=== PATIENT | female | born 1980 | race Caucasian/White ===

== ENCOUNTER 2020-09-11 13:16 | Outpatient (RCR) | payer OTHER, SELFPAY | END 2020-11-24 23:59 | LOC: IMMUN 13:16 | PROVIDERS: PCP Nurse Practitioner Family; Visit Provider Family Medicine | DX: Z23 Encounter for immunization (principal) | CPT/HCPCS: 0001A; 0002A; 91300 ==

== ENCOUNTER 2024-01-10 12:00 | Outpatient (RCR) | payer OTHER, SELFPAY ==
--- NOTE | 2023-10-09 15:57 | HP.OTEVAL_ITS ---
Patient's Visit Information Visit Information Visit Information: SUZANNE JEAN is a 43 year old F, referred to Occupational Therapy by LIDIA Elise, with a diagnosis of strain of left wrist and elbow. Date of Evaluation: 10/09/23 Occupational Therapist: CHERYL Dobbs/Brittany, CHT Subjective Subjective: This 43 year old female was seen for OT eval with dx of left wrist strain of muscle /tendon / left hand. Pt states she has had issues for last 6 months starting in the hand and then went to elbow at end of August. (painful to use and could not sleep) pt states she went to nurse and she sent [facility] to [facility]. Pt states they put her own prednisone last visit. ( ). pt sates she feels the medication has helped a lot. States still achy but nothing compared to what it was. Pt states she is right handed. Pt works at [employer] pt states she has worked there for about 8.5 years. pt states she is currently on light duty. with a 5# restriction with no gripping of left hand with work. pt arrives with compression elbow sleeve- and the work nurse did give her a wrist brace about two -three weeks ago. (therapist did look at brace this was more of compression glove/gauntlet ) not a restrictive wrist brace. pts pain is limiting her sleep- daily tasks and work tasks. Pt would like to be pain free and return back to her PLOF. ADLs Comments: pt states she is ok with personal bathing and dressing tasks pt states driving is fine family is assisting with home mtg. pt is right handed. Pain left elbow/wrist: Current Pain Intensity: 4 Pain Intensity Range: 4 and 6 ROM Elbow: right 0/140 left 0/140 Forearm: sup/pron WNL bilaterally Wrist: right 60/55 left 60 with discomfort /55 ROM Comments: right UD 30* RF 15* left UD 30* with some discomfort left RD 10* Strength Licensed Nursing Assistant: right 45# left 20# pain 3/10 with release Lateral Pinch: right 14# left 10# Tripod Pinch: right 18# left 10# Strength Comments: right with elbow straight 45# left 24# pain in elbow 4/10 Sensation Sensation Comments: tingling in her thumb- before medication left hand tingling/numb Special Tests Lat Epiconylitis - as named: left painful with palpation Quick DASH-Disab of Arm,Shoulder& Hand Quick DASH Score: 55.3550 Tennis Elbow Tennis Elbow Score: 43 Goals Goal:: pt will demo a increase in left svp digital sales food & cooking strength to 45# or greater to increase pts ind. with ADLs and IADLs by d.c Goal:: pt will report no pain greater than 3/10 with use of left UE by d/c to return pt to PLOF Goal:: Pt will demo understanding of joint protection and ergonomics when performing BADLs and IADLs by d/c Pt will demo understanding of work/lifting and carry ergonomics to decrease stress on tendons to increase pts independent with ADLs, IADLS and work tasks by d/c. Pt will demo understanding of adaptive Equipment use to decrease stress on joints to allow pt to perform BADSL and IADLS at DANTE level. Goal:: Pt will demo understanding of using supportive bracing 80% of workday/ADLS to decrease stress on tendon origin to allow healing and decrease pain by end of 2nd session. Goal:: pt will demo a reduction in dash score point by 10 indication of increase ind. with daily and work tasks by d.c Rehabilitation General Assessment: pt demo with pain and limited strength and use of left UE for home mtg and work tasks. pt would benefit from skilled OT services 3x week for 4-6 weeks. to return pt to her PLOF with ADLs and work tasks. Therapist ed. pt on use of her wrist and elbow brace at night to prevent prolonged positioning of elbow and wrist in flexed position. Therapist advised to get left wrist cock- up brace to decrease ROM of wrist flex/ext during the day and at night.Therapy will continue to work with pt increase pts IND with return to work tasks as well as ergo, joint protection freedom, and PRE as ml. pt demo understanding - pt agree to POC. Rehabilitation Potential: Good Anticipated Interventions Anticipated Interventions: A/AAROM/PROM, Strengthening, Triggerpoint Release, Modalities, Orthoses, Joint Protection/Energy Conservation, Ergonomic Education, Education re assistive Equipment, Education re Diagnosis and Home Program Visit Plan Frequency: 3x /Week Duration: 6 Weeks TEXT: Thank you for the opportunity to evaluate your patient. For Medicare and Medicare HMO plans, please review the plan of care and approve it. It will need to be FAXED BACK to us at [phone] for Medicare purposes. Please let me know if there are questions or concerns regarding this plan of care. Physician Signature: Date:
--- NOTE | 2023-11-22 11:29 | OTREVAL_ITS ---
Re-Evaluation Intro: LIDIA Elise, It has been my pleasure to treat SUZANNE JEAN over the last 18 visits for strain of left wrist and elbow. Please see the progress note below for an update on the occupational therapy plan of care! 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 Acosta. Goals Goals Patient Goals: Decrease Pain, Use Hand/Wrist/Arm Normally Again and Be More Independent in ADLS Goal:: pt will demo a increase in left residential gas heat technician strength to 45# or greater to increase pts ind. with ADLs and IADLs by d.c 11/20/23-- 45# Goal:: pt will report no pain greater than 3/10 with use of left UE by d/c to return pt to PLOF ---11/22/23 pain 4/10 Goal:: Pt will demo understanding of joint protection and ergonomics when performing BADLs and IADLs by d/c ongoing Pt will demo understanding of work/lifting and carry ergonomics to decrease stress on tendons to increase pts independent with ADLs, IADLS and work tasks by d/c. Pt will demo understanding of adaptive Equipment use to decrease stress on joints to allow pt to perform BADSL and IADLS at DANTE level. Goal:: Pt will demo understanding of using supportive bracing 80% of workday/ADLS to decrease stress on tendon origin to allow healing and decrease pain by end of 2nd session. goal met Goal:: pt will demo a reduction in dash score point by 10 indication of increase ind. with daily and work tasks by d.c reduction by 3 points Anticipated Interventions Anticipated Interventions Anticipated Interventions: A/AAROM/PROM, Strengthening, Triggerpoint Release, Modalities, Orthoses, Joint Protection/Energy Conservation, Ergonomic Education, Education re assistive Equipment, Education re Diagnosis and Home Program Re-Evaluation Ending Re-evaluation ending: Please do not hesitate to contact me at [phone] by phone or if you have questions or concerns regarding this new plan of care! Sincerely, Sabra Dunn
--- NOTE | 2024-01-11 08:09 | HP.OTREVAL ---
Re-Evaluation Intro: LIDIA Elise, It has been my pleasure to treat SUZANNE JEAN over the last 16 visits for strain of left wrist and elbow. Please see the progress note below for an update on the occupational therapy plan of care! Subjective Subjective: Pt is having cortisone- last scheduled appt. Objective Objective/Function: R Outside Energy Sales Representatives- 70# same with elbow extended and flexed. L Outside Energy Sales Representatives flexed- 68# extended 65# -small amount of pain in L arm 2/10 after resistive forensic social worker strength test extended - only was present for several seconds. Tripod Grasp: R:11# , L: 10# Lateral Grasp: R:12# , L:10# pt demo with increase of strength and a sig. decrease in pts strength with forensic social worker strength testing with elbow extended indication of pts improvement. pt is compliant with use of braces and protective freedom. with work and home tasks. pt is performing supervised UB strengthening with gym and free wts. pt is looking forward to her cortisone shot to see if it will take residual pain away. pt returns to . will advise for further POC. Plan Plan Plan: 3x week for 4-6 weeks c-9 approval until 01/12/24 LAST SCHEUDLED- will get cortisone shot 01/11/24 Goals Goals Patient Goals: Decrease Pain, Use Hand/Wrist/Arm Normally Again and Be More Independent in ADLS Goal:: pt will demo a increase in left forensic social worker strength to 45# or greater to increase pts ind. with ADLs and IADLs by d.c 11/20/23-- 45# Goal:: pt will report no pain greater than 3/10 with use of left UE by d/c to return pt to PLOF ---11/22/23 pain 4/10 Goal:: Pt will demo understanding of joint protection and ergonomics when performing BADLs and IADLs by d/c ongoing Pt will demo understanding of work/lifting and carry ergonomics to decrease stress on tendons to increase pts independent with ADLs, IADLS and work tasks by d/c. Pt will demo understanding of adaptive Equipment use to decrease stress on joints to allow pt to perform BADSL and IADLS at DANTE level. Goal:: Pt will demo understanding of using supportive bracing 80% of workday/ADLS to decrease stress on tendon origin to allow healing and decrease pain by end of 2nd session. goal met Goal:: pt will demo a reduction in dash score point by 10 indication of increase ind. with daily and work tasks by d.c reduction by 3 points Anticipated Interventions Anticipated Interventions Anticipated Interventions: A/AAROM/PROM, Strengthening, Triggerpoint Release, Modalities, Orthoses, Joint Protection/Energy Conservation, Ergonomic Education, Education re assistive Equipment, Education re Diagnosis and Home Program Re-Evaluation Ending Re-evaluation ending: Please do not hesitate to contact me at [phone] by phone or if you have questions or concerns regarding this new plan of care! Sincerely, Linda Babin, OTR/L, CHT
--- NOTE | 2024-02-28 10:57 | HP.OTDCNRP_ITS ---
Patient Information Patient Information: SUZANNE JEAN was seen in my office for initial evaluation on 10/09/23. The following Plan of Care was established for this patient: POC Established Initial Frequency: 3x /Week Initial Duration: 6 Weeks Plan: 3x week for 4-6 weeks c-9 approval until 01/12/24 LAST SCHEUDLED- will get cortisone shot 01/11/24 Anticipated Interventions Anticipated Interventions: A/AAROM/PROM, Strengthening, Triggerpoint Release, Modalities, Orthoses, Joint Protection/Energy Conservation, Ergonomic Education, Education re assistive Equipment, Education re Diagnosis and Home Program Last Seen Last Seen: This patient was last seen in our office 01/10/24. Pertinent comments regarding their Occupational therapy will appear below: Pt was seen for 16 OT sessions with lateral epicondylitis. R Turpentine Farmer- 70# same with elbow extended and flexed. L Turpentine Farmer flexed- 68# extended 65# -small amount of pain in L arm 2/10 after resistive lab associate strength test extended - only was present for several seconds. This is improvement from initial evaluation. Tripod Grasp: R:11# , L: 10# Lateral Grasp: R:12# , L:10# pt demo with increase of strength and a sig. decrease in pts strength with lab associate strength testing with elbow extended indication of pts improvement. pt is compliant with use of braces and protective freedom. with work and home tasks. pt is performing supervised UB strengthening with gym and free wts. pt is looking forward to her cortisone shot to see if it will take residual pain away. pt returns to Dr. Richards for possible injection. No further orders have been received at this time. Pt is D/C due to time lapse in services. At this point I will be discontinuing this patient from occupational therapy. I would be happy to see this patient again in the future if found appropriate by the physician. Thank you! Linda Babin, OTR/L, CHT
== END 2024-01-10 19:00 | disposition home or self-care (01) ==
LOC: OT 12:00
PROVIDERS: PCP Nurse Practitioner Family; Referring Provider Physician Assistant Surgical; Visit Provider Physician Assistant Surgical
DX: S66.912D Strain of unspecified muscle, fascia and tendon at wrist and hand level, left hand, subsequent encounter (principal)
CPT/HCPCS: 97035; 97110; 97140; 97166; 97530; 97760

== ENCOUNTER → 2024-02-07 | Outpatient (CLI) | payer OTHER, SELFPAY ==
--- NOTE | 2024-02-07 14:30 | NEURO ---
NCS and/or EMG Patient Report Ordering Doctor: Claudy Roberts DATE OF SERVICE: 02/07/24 Bailee presents for electrodiagnostic testing of the left upper limb. She reports numbness tingling and aching in the left arm. Electrodiagnostic findings: Left median motor nerve demonstrates normal distal latency, amplitude and conduction velocity. Normal left ulnar motor response. Normal medial ulnar F?ways. Sensory responses are within normal limits. Needle EMG testing was performed the left upper limb. 1+ fibrillations noted in the left triceps, left flexor carpi ulnaris, left pronator teres and left lower cervical paraspinals. Motor unit action potentials with normal amplitude and duration Electrodiagnostic impression: This is an abnormal study in the left upper limb 1. Electrodiagnostic findings are suggestive of acute left C7 radiculopathy. Recommend correlation with cervical spine imaging. 2. No electrodiagnostic evidence is noted for peripheral neuropathy, including carpal tunnel syndrome Multi Select Codes Neurology Neurology Interp Codes: 88263-39 Musc test done w/n test comp (interp) (2) and 31883-22 Nrv cndj test 9-10 studies (interp)
== END | disposition home or self-care (01) ==
LOC: PSN 09:36
PROVIDERS: PCP Nurse Practitioner Family; Referring Provider Orthopaedic Surgery Sports Medicine; Visit Provider Orthopaedic Surgery Sports Medicine
DX: S66.912A Strain of unspecified muscle, fascia and tendon at wrist and hand level, left hand, initial encounter (principal); M54.12 Radiculopathy, cervical region
CPT/HCPCS: 95886; 95910

== ENCOUNTER → 2024-03-11 | Outpatient (CLI) | payer OTHER, SELFPAY ==
--- NOTE | 2024-03-11 13:55 | MRI_ITS ---
EXAM: MR CERVICAL SPINE WITHOUT INTRAVENOUS CONTRAST CLINICAL INDICATION: pain X 6 MONTHS TECHNIQUE: Multiplanar and multisequence MR images of the cervical spine without intravenous contrast were performed. COMPARISON: No relevant prior studies available. FINDINGS: VERTEBRAE: Normal. Normal vertebral bodies and posterior elements. Normal alignment. Normal craniocervical junction and cervicothoracic junction. No spondylolisthesis. There is preservation of the normal cervical lordosis. SPINAL CORD: Unremarkable in signal and morphology. SOFT TISSUES: Normal. No prevertebral soft tissue swelling. LYMPH NODES: Normal. There is no cervical adenopathy. DISCS/SPINAL CANAL/NEURAL FORAMINA: C2-C3: Normal. Normal disc height and morphology. Normal spinal canal. Normal neuroforamina. C3-C4: No significant disc space narrowing. Left central disc protrusion causes minor impression on the thecal sac. No spinal or neural foraminal stenosis. C4-C5: Normal. Normal disc height and morphology. Normal spinal canal. Normal neuroforamina. C5-C6: C5-6: Mild to moderate disc space narrowing. Broad-based disc protrusion causes mild narrowing of the right lateral recess, mild spinal stenosis and mild right neural foraminal narrowing. C6-C7: Mild disc space narrowing. No disc protrusion. No spinal or neural foraminal stenosis. C7-T1: Normal. Normal disc height and morphology. Normal spinal canal. Normal neuroforamina. MRI/Spine Cervical (Routine) IMPRESSION: 1. C5-6 disc protrusion causing mild narrowing of the spinal canal, right lateral recess and right neural foramen. 2. C3-4 paracentral disc protrusion without significant spinal or neural foraminal stenosis. Electronically Signed: Zbigniew Otero MD at 10:37 EDT ,
== END | disposition home or self-care (01) ==
LOC: MRI 07:35
PROVIDERS: PCP Nurse Practitioner Family; Referring Provider Orthopaedic Surgery Orthopaedic Surgery of the Spine; Visit Provider Orthopaedic Surgery Orthopaedic Surgery of the Spine
DX: M54.12 Radiculopathy, cervical region (principal); G95.9 Disease of spinal cord, unspecified
CPT/HCPCS: 72141

== ENCOUNTER 2024-04-01 10:30 | Outpatient (RCR) | payer OTHER, SELFPAY ==
--- NOTE | 2024-03-11 16:50 | HP.PTEVAL_ITS ---
Patient's Visit Information Visit Information Visit Information: SUZANNE JEAN is a 43 year old F referred to Physical Therapy by Dr. Rich Bai MD with a diagnosis of CERVICAL MYELOPATHY WITH RADICULOPATHY. Date of Evaluation: 03/11/24 Physical Therapist: Mindy Betancourt PT, Cert MDT Visit Plan Frequency: 2-3x /Week Duration: 4-6 Weeks Plan: Scapular Strengthening and B Pec/UT/Levator/Scalene Stretching to help reduce stress on Cervical Spine with Daily Activities. US at 1.3 W/CM2 100% to R Neck Musculature in sitting. Moist Heat to Neck as needed. Instruction in Proper Posture Control, Ergonomics with ADL's and Appropriate Activity Modifications. HEP Instructions. 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 LIFTING UP TO 20 LBS. VERY REPETITIVE. 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 WAS ON LIGHT DUTY FOR ABOUT 3 MONTHS. Disability: NO Present symptoms: HEADACHES L>R. NECK PAIN L>R. SHOULDER PAIN L>R. RARE INTERMITTENT L HAND TINGING. Present since: ABOUT 6 MONTHS. Pain Scale: Worst - 6/10 Least - 1/10 Currently: 1/10 Getting Better, Getting Worse, or Staying the Same: Headaches are getting worse and everything else is staying about the same. Commenced as a result of: NO APPARENT REASON. Symptoms at onset: L NECK PAIN Worse: LIFTING, LOOKING DOWN, SLEEPING PROVOKES L HAND TINGLING (BUT RARELY) Better: IBUPROFEN, LYING DOWN WITH EYES CLOSED, SLEEPING HELPS HEAD AND NECK PAIN, HEAT Disturbed sleep: YES - TINGLING IN HAND (RARE) Previous history/Previous treatment: CHIROPRACTIC A COUPLE YEARS AGO FOR SHOULDERS - RESOLVED SHOULDER PROBLEMS. This episode: OCCUPATIONAL THERAPY X 36 VISITS WITH 75% IMPROVEMENT IN L HAND TINGLING BUT STILL WAKING HER UP AT NIGHT BUT JUST NOT MUCH. STATES SHE HAS A NIGHT SPLINT BUT STOPPED WEARING IT BECAUSE THE TINGLTING WAS GOING AWAY AND SHE HAS THE TINGLING RARELY NOW SO HASN'T BEEN WEARING IT. Dizziness: A LITTLE BIT Tinnitus: NO Nausea: A LITTLE BIT Shortness of Breath: NO Difficulty Swollowing: NO Gait: PATIENT REPORTS VERING TO THE LEFT A LITTLE BIT AND ALMOST FALLING OVER - I CATCH MYSELF BUT LEAN TO THE LEFT AND FEEL LIKE I'M GOING TO FALL. STATES SHE NOTICED IT MORE IN THE LAST 2-3 MONTHS. IT DOESN'T HAPPEN ALL THE TIME BUT ENOUGH TO NOTICE. NO FALLS. SHE REPORTS SHE TOLD DR. BAI AND HE CHECKED HER REFLEX'S. MRI ORDEDED AND PENDING Feb. Accidents: NO Unexplained weight loss: NO Imaging: RECENT CERVICAL X-RAYS: Preserved vertebral body height. No fracture. No spondylolisthesis. Preservation of the normal cervical lordosis. No significant facet arthropathy. No evidence of instability on flexion and extension imaging. DISCS: Mild disc space narrowing at C6-C7.. Endplate osteophytes at the lower cervical spine. 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 OTHER: PATIENT REPORTS 6 MONTHS AGO SHE WENT TO THE EMPLOYEE NURSE WITH ELBOW PAIN (BUT HER NECK WAS ALREADY HURTING). [facility] AND THEN OCCUPAATIONAL THERAPY ALONG WITH MELOXICAM. [facility] EVENTUALLY REFERRED HER TO DR. RDZ AND HE ORDERED AN EMG AND A NCT OF HER LUE IN ADDITION TO GIVING HER A CORTISONE SHOT. BASED ON THOSE RESULTS SHE WAS REFERRED TO DR. BAI AND HER REFERRED HER TO PT. Pain Neck: Pain Intensity (Out of 10): 1 Pain Intensity Range: 1, 6 and Unrated Comment: L Neck Headache: Pain Intensity (Out of 10): 1 Pain Intensity Range: 1, 6 and Unrated Objective Objective: Sitting/Standing Posture: FH. ROUNDED SHOULDERS L>R. Active Correction of posture: BETTER. ABLE TO PARTIALLY CORRECT AND DECREASES C/O NECK PAIN. DOES NOT MAINTAIN. Other Observations: INDEP GAIT AND TRANSFERS WITH NO GROSS DEVICATIONS NOTED. ABLE TO SLS X > 15 SEC EACH LE WITHOUT UE ASSIST. Sensory deficit: AICHA UE LIGHT TOUCH SENSATION GROSSLY INTACT AND SYMMETRICAL ROM deficit: AICHA UE'S WFL Motor deficit: AICHA UE'S GROSSLY 5/5 WITH MMT'ING. PRATIENT IS R HAND DOMINANT WITH A R CLOTH NAPPING SUPERVISOR STRNGTH OF 61 LBS AND L 49 LBS. Reflexes: 1+ AICHA UE'S Dural Signs: NEGATIVE AICHA UE'S. Cervical Mvmt Loss: Flex: NIL Pro: NIL Ext: MOD Ret: JHON - INCREASES - NW RSB: MIN - INCREASES - NW LSB: MIN - INCREASES - NW R Rot: MIN L Rot: MIN Postural strength: POOR TREATMENT: NEUROMUSCULAR REEDUCATION - RETRAINING OF MVMT AND POSTURE FOR SITTING, LYING AND STANDING ACTIVITIES. INSTRUCTION IN SUBMAX SUPINE ISO RETRACTION 2X5, 5 SEC EA, 3 TIMES A DAY TOLERATED. Balance/Special Test Scores Oswestry Neck Score: 11 Goals Goal 1:: DECREASE C/O HEAD, NECK AND UE SYMPTOMS BY AT LEAST 80% Goal Time Frame: 4-6 Weeks Goal 2:: IMPROVE LIFTING, READING, CONCENTRATION, SLEEP, WORK, WALKING, DRIVING AND RECREATIONAL FUNCTION Goal Time Frame: 4-6 Weeks Goal 3:: INSTRUCT IN PROPHYLAXIS Goal Time Frame: 4-6 Weeks Rehabilitation Potential Physical Therapy Diagnosis: POSTURAL WEAKNESS AND HYPOMOBILITY WITH DECREASED NECK ROM Rehabilitation Potential: Good Anticipated Interventions Patient/Client Instruction: Educate patient on: Condition, Plan of Care and Risk Factors For the Purpose of:: To improve self management Therapeutic Exercise to Include: Strength training, Body mechanics, Postural training, Flexibilty training, Neuromotor development and Scapular Strength/Stabilization For the Purpose of:: To decrease pain, To increase ROM, To improve muscle performance and motor function, To increase tolerance to activity/condition/position, To improve ability of physical actions for home/community/work/leisure, To improve gait and locomotor functions, To increase flexibility/ROM and To improve self management Cryotherapy (ice pack, ice massage): Yes Thermo therapy (hot pack): Yes Ultrasound (thermal/non thermal): Yes For the Purpose of:: To decrease pain, To decrease swelling/inflammation and To improve nutrient delivery to tissue Text: Thank you for the opportunity to evaluate your patient. For Medicare and Medicare HMO plans, please review the plan of care and approve it. It will need to be FAXED BACK to us at [phone] for Medicare purposes. For Medicare only, by signing this I certify the plan of care. Please let me know if there are questions or concerns regarding this plan of care. Physician Signature: Date:
--- NOTE | 2024-04-01 11:29 | HP.PTDCSUM ---
Discharge Summary D/C summary: It has been my pleasure to treat SUZANNE JEAN referred by Dr. Rich Munroe MD, with the diagnosis of CERVICAL MYELOPATHY W/RADICULOPATHY for a total of 10 visit(s). Discharge Date: 04/01/24 Please see the following information for a summary of their discharge status. Subjective Subjective: PATIENT REPORTS SEEING DR. MUNROE MONDAY AND HE RECOMMENDED DISC REPLACEMENT SURGERY AT [facility]. SHE THOUGHT ABOUT IT OVER THE WEEKEND AND DECIDED TO GO AHEAD WITH SURGERY. SHE IS GOING TO LET THEM KNOW TODAY. PATIENT HAS WORKED 4 HOURS SO FAR TODAY AND HAS BEEN LOOKING DOWN. OVER-ALL SHE REPORTS SHE IS FEELING A LOT BETTER AND HAS EVEN HAD SOME MORE IMPROVEMENT SINCE LAST WEEK BUT THE IMPROVEMENT IS GETTING SLOWER/LESS. SHE STATES DR. MUNROE TOLD HER THAT WITHOUT SURGERY SHE IS GOING TO KEEP GETTING FLARE UPS AND IT ISN'T GOING TO GET ANY BETTER THAN IT ALREADY IS. SHE STATES HE ALSO TOLD HER THAT SURGERY COULD ALSO HELP HER KEEP FROM GETTING MORE DAMAGE THAN SHE ALREADY HAS IN HER NECK AND R ARM. SHE REPORTS DR. MUNROE TOLD HER TO CONTINUE HER PT AT HOME. PATIENT REPORTS SHE WAS TIRED BUT FELT GOOD AFTER LAST VISIT. Pain Neck: Pain Intensity (Out of 10): 2 Headache: Pain Intensity (Out of 10): 1 Overall Improvement % Improvement: 80 Objective Objective/Function: ASSESSMENT OF CURRENT SX'S AND HEP CHECK. INSTRUCTED PATIENT IN AND ADDED OTB MR'S AND SINGLE ARM WALL SLIDES INTO FLEXION TO HEP. PATIENT WITH MILD AICHA SHLD FLEXION TIGHTNESS THAT RESPONDED WELL TO STRETCHING TODAY. SCAPULAR WEAKNESS STILL EVIDENT AND HAD GOOD CHALLENGE WITH LAE'S TODAY DEMO'ING GOOD TECHNIQUE AFTER INSTRUCTION. PATIENT IS INDEP WITH HEP AND PLANNING TO HAVE NECK SURGERY. SHE IS APPROPRIATE FOR AND AGREEABLE TO DISCHARGE TO HEP. EMPHASIZED TO PATIENT TO KEEP EX'S IN COMFORTABLE RANGE AND INTENSITY. Goals Goal 1:: DECREASE C/O HEAD, NECK AND UE SYMPTOMS BY AT LEAST 80% Goal Progress: Goal Met Goal 2:: IMPROVE LIFTING, READING, CONCENTRATION, SLEEP, WORK, WALKING, DRIVING AND RECREATIONAL FUNCTION Goal 3:: INSTRUCT IN PROPHYLAXIS Goal Progress: Goal Met Plan Plan: D/C TO HEP. PATIENT AGREEABLE. D/C Information d/c sentence: If there are questions or concerns regarding this patient's physical therapy, please feel free to call me at [phone]. Thank you for the referral of this patient. Sincerely, Mindy Betancourt, PT, Cert MDT Balance/Gait/Functional tests Balance/Special Test Scores Oswestry Neck Score: 11 Improvement % Improvement: 80
== END 2024-04-01 19:00 | disposition home or self-care (01) ==
LOC: PT 10:30
PROVIDERS: PCP Nurse Practitioner Family; Referring Provider Orthopaedic Surgery Orthopaedic Surgery of the Spine; Visit Provider Orthopaedic Surgery Orthopaedic Surgery of the Spine
DX: M54.12 Radiculopathy, cervical region (principal); G95.9 Disease of spinal cord, unspecified
CPT/HCPCS: 97035; 97110; 97112; 97140; 97162; 97530

== ENCOUNTER 2024-05-20 05:24 | Day surgery (SDC) | payer OTHER, SELFPAY ==
[2024-05-08 16:51] LABS: Magnesium 2.2 mg/dL (1.6-2.6)
[2024-05-08 16:59] LABS: Anion Gap 5 (5-15); BUN 7 mg/dL (7-18); BUN/Creat Ratio 8.3 RATIO (10-20); Calcium,Total 9.2 mg/dL (8.5-10.1); Chloride 103 mmol/L (98-107); Creatinine, Serum 0.84 mg/dL (0.55-1.02); EST Glomerular Filtration Rate 78 mL/min (>60); Est Glom Filt Rate - Afr Amer 94 mL/min (>60); Glucose 87 mg/dL (74-106); Potassium 3.1 mmol/L (3.5-5.1); Sodium Level 137 mmol/L (136-145)
[2024-05-08 17:40] LABS: HIV - WCH Non-Reactive (Nonreactive); Hepatitis B Surface Antibody Non-Reactive; Hepatitis C Antibody Non-Reactive (Nonreactive)
[2024-05-10 05:08] LABS: Hepatitis A AB, Total Negative (Negative)
[2024-05-20] VITALS (13 sets, daily range): BP systolic 116–147; BP diastolic 67–90; PULSE 81–102; RESP 16–18; TEMP 36.3–37.2; O2SAT 98–100; BMI 33.8
[2024-05-20] MEDS: Lactated Ringers 1,000 ML 15 ML IV (06:07)
[2024-05-20] MEDS: Magnesium 1 GM over 15 mins IV (06:08)
[2024-05-20] MEDS: Acetaminophen 500 MG Tablet 1000 MG PO (06:08)
--- NOTE | 2024-05-20 07:13 | PRE.ANES_ITS ---
ASA Classification* ASA Classification ASA Classification: 3 Assessment & Plan Anesthesia* Anesthesia Assessment Anesthesia Assessment: Discussed sedation and/or anesthesia options, risks, benefits, and alternatives with patient/parents/legal guardian/POA. Questions invited. The patient/parents/legal guardian/POA seems to understand and agrees to proceed with anesthesia plan. Reviewed the physical assessment, medical history, allergy history and patient home medications list prior to surgery/procedure/anesthetic and documented any changes. Performed airway and anesthesia risk assessments. Anesthesia Type Anesthesia Type: General (Glidescope intubation) Anesthesia Focused Assessment* Temperature: 99 F Pulse Rate: 99 Blood Pressure: 147/90 Respiratory Rate: 18 Pulse Ox: 100 Airway Assessment Mouth opens: >3 cm Mallampati Score: II Focused Labs Anesthesia Preop lab: CBC CHEMISTRY Potassium 3.1 mmol/L (3.5-5.1) L 05/08/24 15:56 Sodium 137 mmol/L (136-145) 05/08/24 15:56 Magnesium 2.2 mg/dL (1.6-2.6) 05/08/24 15:56 BUN 7 mg/dL (7-18) 05/08/24 15:56 Creatinine 0.84 mg/dL (0.55-1.02) 05/08/24 15:56 Glucose 87 mg/dL (74-106) 05/08/24 15:56 COAG Pre-Assessment Diagnosis/Proposed Procedure Planned Operative Procedure(s): Cervical disc replacement C5-6 Anesthesia History Anesthesia History - watch crystal grinder: Anesthesia History - watch crystal grinder Hx Hospitalization No 05/06/24 14:07 Any Problems With Anesthesia No 05/06/24 14:07 Cholinesterase deficiency No 05/06/24 14:07 You/Your Family Experience No 05/06/24 14:07 fever (hyperthermia) with Relationship Recent Exposure to Contagious No 05/20/24 05:58 Disease Does patient have nerve No 05/06/24 14:07 stimulator Patient instructed to have device shut off --Does patient have Pacemaker No 05/20/24 05:58 or ICD? When Was Last Pacemaker Check QUESTION #4 FULL TEXT: You/Your Family Experience fever (hyperthermia) with Anesthesia Last Oral Intake Last Oral intake: Last Oral Intake NPO since 03:30 05/20/24 05:58 Meds taken in AM with sips of water? Meds patient instructed to take am of surgery PONV PONV - watch crystal grinder: PONV - watch crystal grinder Female Yes 05/06/24 14:07 HX of Motion Sickness No 05/06/24 14:07 HX of N/V After Surgery No 05/06/24 14:07 Non-Smoker Yes 05/06/24 14:07 Duration of Surgery greater Yes 05/06/24 14:07 than 60 minutes Number of Risk Factors 3 05/06/24 14:07 PONV Score Moderate Risk 05/06/24 14:07 Height & Weight Height & Weight: Anesthesia: Height & Weight Height 4 ft 11 in 05/20/24 05:58 Weight: 76 kg 05/20/24 05:58 Body Mass Index (BMI) 33.8 05/20/24 05:58 Respiratory Assessment Respiratory Assessment - watch crystal grinder: Respiratory Tract Infection Hx - watch crystal grinder Hx Respiratory Tract Infection No 05/06/24 14:07 STOP Sleep Apnea STOP Sleep Apnea - watch crystal grinder: STOP Sleep Apnea - watch crystal grinder Hx Hypertension No 05/06/24 14:07 Hx Sleep Apnea No 05/06/24 14:07 CPAP BIPAP Do you snore loudly (louder No 05/06/24 14:07 than talking or can be heard Do you often feel tired/ No 05/06/24 14:07 fatigued/ sleepy during daytime? Has anyone observed you stop No 05/06/24 14:07 breathing during sleep? STOP Results Negative 05/06/24 14:07 QUESTION #5 FULL TEXT : Do you snore loudly (louder than talking or can be heard through closed doors)? Tobacco Use History Tobacco Use History - watch crystal grinder: Tobacco Use History - watch crystal grinder Tobacco Use Smoking Status Never smoker 05/06/24 14:07 Hx Tobacco Use No 05/06/24 14:07 Years Smoking Packs Smoked per Day Smoking Cessation Date was within the last 15 years Hx Smoking Cessation Date Hx Smoking Cessation Counseling Hematologic Medial History Hematologic Hx - watch crystal grinder: Hematologic Medical Hx - injury/safety hazard assessment Hx of Blood Transfusion No 05/06/24 14:07 Hx of Transfusion in last 3 No 05/06/24 14:07 Months Date of Last Transfusion (if within last 3 months) Ever experience any problems No 05/06/24 14:07 with transfusion(s)? Specify any problems Hx of Preganancy in last 3 No 05/06/24 14:07 Months Nurse Filling Out Transfusion VCHRISTIN 05/06/24 14:07 & Questions: Date: 05/06/24 05/06/24 14:07 Time: 14:08 05/06/24 14:07 Patient unable to answer at this time (ie. confused, unrespo /Reproduction History /Reproductive History - watch crystal grinder: /Reproductive Hx- watch crystal grinder Hx Now No 05/06/24 14:07 Gestational Age (in weeks): EDC: Hx Hx Para Hx Section SAB No 05/06/24 14:07 Active Medications Active Medications: Current Medications Generic Name Dose Route Start Last Admin Trade Name Freq PRN Reason Stop Dose Admin Acetaminophen 1,000 mg 05/20/24 07:30 05/20/24 06:08 Acetaminophen 500 Mg Tablet PO 05/20/24 07:31 1,000 mg X1 ONE Administration Dexamethasone Sodium Phosphate 8 mg 05/20/24 07:30 Dexamethasone 10 Mg/Ml Vial IV 05/20/24 07:31 X1 ONE Dexamethasone Sodium Phosphate 4 mg 05/20/24 07:30 Dexamethasone 4 Mg/Ml Vial IV 05/20/24 07:31 X1 ONE Clindamycin Phosphate 900 mg in 50 mls @ 75 mls/hr 05/20/24 07:30 Cleocin IV 05/20/24 08:09 PREOP ONE Tranexamic Acid 1,000 mg/ 110 mls @ 440 mls/hr 05/20/24 07:30 Sodium Chloride IV 05/20/24 07:44 X1 ONE Tranexamic Acid 1,000 mg/ 110 mls @ 440 mls/hr 05/20/24 07:30 Sodium Chloride IV 05/20/24 07:44 X1 ONE Magnesium Sulfate 1 gm/ 102 mls @ 408 mls/hr 05/20/24 07:30 05/20/24 06:08 Dextrose IV 05/20/24 07:44 408 mls/hr X1 ONE Administration Lactated Ringer's 1,000 mls @ 15 mls/hr 05/20/24 05:45 05/20/24 06:07 IV 05/25/24 19:04 15 mls/hr .Q48H TARYN Administration Protocol Insulin Human Lispro 1 - 6 unit 05/20/24 07:30 Insulin Lispro 100 Unit/Ml Insuln.Pen SC 05/20/24 13:00 Q4H PRN PRN BG>/= 180, SEE PROTOCOL Protocol PFSH Medical History Wears dentures Wears glasses History of steroid therapy Gastric reflux Non-smoker Left carpal tunnel syndrome Left elbow pain Lateral epicondylitis, left elbow Medial epicondylitis, left elbow No active medical problems Home Medications ?Medication ?Instructions ?Recorded ?Last Taken ?Type NK 02/15/24 Unknown History Allergy/AdvReac Type Severity Reaction Status Date / Time Penicillins Allergy Mild Hives Verified 05/20/24 05:57 Surgical History Hx of tubal ligation Hx of myringotomy Hx of adenoidectomy History of 3 sections Social History Smoking Status: Never smoker alcohol intake: never substance use type: does not use Review of Systems (Anesthesia) ROS Narrative System reviewed and no additional complaints, except as documented.
--- NOTE | 2024-05-20 07:33 | HP.PCM_ITS ---
History and Physical MR#: [id number] Acct: [id number] Name: SUZANNE JEAN Rep #: [id number] : 1980 Provider: Dr. Rich Bai MD Age/Sex: 43/F Location: [facility] [email or web address] Status: Signed Intake Vital Signs 03/07/2411:02 Height 4 ft 11 in Intake Visit Reasons: cervical spine Chief Complaint: cervical spine Accompanied by: Is patient in pain?: Yes Pain scale (1-10): 2 Allergies Penicillins Allergy (Mild, Verified 05/14/24 15:23) Hives Medications ?Medication ?Instructions ?Recorded ?Confirmed ?Type NK 02/15/24 05/14/24 History PFSH Medical History Wears dentures Wears glasses History of steroid therapy Gastric reflux Non-smoker Left carpal tunnel syndrome Left elbow pain Lateral epicondylitis, left elbow Medial epicondylitis, left elbow No active medical problems Surgical History Hx of tubal ligation Hx of myringotomy Hx of adenoidectomy History of 3 sections Social History Smoking Status: Never smoker alcohol intake: never substance use type: does not use HPI cervical spine Details: This documentation accurately reflects the service provided and the decisions made by me, Dr. Rich Bai MD 05/14/24 1523. Part of today?s visit was documented by Rosalina COLLINS , acting as scribe. SUZANNE JEAN is a 43 year old F here today for a Pre-Op dos 05/20/2024. Patient is having a Cervical Disc Replacement C5-6. Patient signed consent and was give her soap and drinks. HPI from 04/09/24: SUZANNE JEAN is a 43 year old F here today for cervical spine MRI review. Pt. states the right side of her neck shoulder and arm have been worse for about 2 weeks. Says in January her left side hurt more but that had recently changed into her right. She has continued to work and whenever she has lift anything over head her pain gets exacerbated. She is in PT and feels that she is benefitting from it. HPI from 02/15/24: SUZANNE JEAN is a 43 year old F here today [facility] patient for neck pain. She states that she has been having headaches for awhile along with numbness and tingling in her hands. She saw Dr. Roberts for the hands and elbow and he ordered a NCS and that when she found out she has a pinched nerve in her neck. She states that she does still have numbness mainly in the left arm. She states that she has been working without restrictions at work and has been noticing more pain. 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 She denies PT and pain management. She takes Ibuprofen for the pain. Suzanne has ongoing back and occipital headache for a few months along with left forearm and dorsal radial hand numbness and pain. This was reported to work comp in August to get a date. She also notices early difficulties with balance with slight wobbliness without any history of falls. She is right-hand dominant. She has only occasional numbness in the right forearm. When her tingling and numbness is at the maximum, she does feel weak in the left hand and drops objects occasionally. Ortho Exam General General: Yes no acute distress Neurologic: Yes alert and Yes oriented x3 Spine SPINE TESTING CERVICAL THORACIC LUMBAR Musculoskeletal Strength 0=absent - 5=normal Details: Neurologic evaluation of upper extremity shows 5 x 5 power normal shows normal sensations in all dermatomes. Sunny's is positive on the left. Left knee and ankle reflexes are brisk. There is no clonus. Romberg's is positive, tandem gait shows mild imbalance. Coding Level of Care Code Off vis,est,level 4 Diagnoses Cervical myelopathy with cervical radiculopathy G95.9; M54.12 Time Spent (min) 35 Assessment and Plan Assessment and Plan (1) Cervical myelopathy with cervical radiculopathy: Status: Acute Plan Again reviewed prior imaging. MRI showed C5-6 disc protrusion causing mild narrowing of the spinal canal with cord indentation without any cord signal changes and right neural foramen stenosis. Again reviewed prior xrays which showed C5-6 disc height loss with posterior osteophytes without any dynamic instability on flexion-extension views. Subtle C3-4 disc herniation noticed. Discussed in detail the C5-6 disc replacement surgery. Reviewed the benefits and risks of surgery. Risks of surgery include bleeding, infection, dysphagia, dysphonia, Phoenix syndrome, hematoma formation, hardware failure, pneumonia, DVT, pulmonary embolism, atelectasis, gait abnormality, persistent pain, stretch injuries, chance for future surgeries. Patient understands and agrees to proceed with surgery. Explained in detail the procedure of the disc replacement. Discussed post surgery restrictions such as no bending, lifting, or twisting and cervical collar wear schedule. Answered all questions that she had today in preparation for surgery. Consent was signed. Patient is in agreement.
--- NOTE | 2024-05-20 07:37 | RAD_ITS ---
PROCEDURE: Anterior cervical spinal fusion. DATE OF EXAMINATION: May 20, 2024. INDICATION: Female, 43 years old. Cervical pain. FLUOROSCOPY TIME (if supplied): (28.9 seconds) minutes/seconds. 2.39 mGy. 6 images were submitted. RAD/Cerv Spine 2 or 3 Views IMPRESSION: Intraoperative fluoroscopic services provided for anterior fusion at the C5-C6 level with prosthetic disc placement. Electronically Signed: Morteza Hannon MD at 15:03 EST ,
[2024-05-20] MEDS: Clindamycin 900 MG/50 ML BAG 75 MG IV (07:46)
[2024-05-20 07:48] LABS: Bedside Glucose 175 mg/dL (74-106)
[2024-05-20] MEDS: TRANEXAMIC ACID 1,000 MG in 0.9% Normal Saline (100mL Bag) 100 ML 440 MG IV ×2 (07:55→09:19)
[2024-05-20] MEDS: dexAMETHasone 10 MG/ML Vial 8 MG IV (08:07)
--- NOTE | 2024-05-20 09:53 | OP.PCM_ITS ---
Operative Report (Standard) Operative Information Surgery/Procedure Performed: C5-6 cervical disc replacement Surgeon: Rich Bai Date of Procedure: 05/20/24 Procedure Start Time: 08:23 Procedure Stop Time: 09:42 Pre-Operative Diagnosis: C5-6 disc degeneration with stenosis, radiculomyelopathy Post-Operative Diagnosis: Same Select all DRAINS/GRAFTS/IMPLANTS that apply: Prosthetic device Prosthetic device details: ZimVie Mobi-C cervical disc prosthesis Type of Anesthesia: General Estimated Blood Loss: 10 cc Specimen collected: No Description of surgery: Preoperative diagnosis: C5-6 disc degeneration with stenosis, with radiculomyelopathy Postoperative diagnosis: Same Name of procedure: C5-6 anterior cervical disc replacement - Cervical disc replacement C5-6, CPT code 55636 Attending surgeon: Rich Bai M.D. Anesthesia: Gen. endotracheal Estimated blood loss: 10 mL Complications: None Instrumentation used: [employer] Mobi-C cervical disc replacement implants Indications: The patient is a pleasant 43-year-old lady who presented with symptoms of neck pain, progressive left worse than right upper extremity radiating numbness, weakness, progressive difficulty with dexterity and balance. MRI revealed C5-6 disc degeneration with stenosis with cord indentation without cord signal changes. In order to halt the progression of myelopathy, patient requested surgical intervention. All risks and benefits of the procedure were explained to the patient. The risks include but are not limited to infection, bleeding, injury to nerves and vessels, vertebral artery injury, spinal cord injury, paralysis, vocal cord paralysis, injury to esophagus, need for further procedures, adjacent segment degeneration, heterotopic ossification, implant loosening, implant failure, DVT, pulmonary embolism, cardiopulmonary event, etc. Procedure: The patient was identified in the preoperative suite using unique patient identifiers. Skin was marked consent was taken and all questions were answered. The patient was then brought back to the operative room and a timeout was performed. General endotracheal anesthesia was given. Intraoperative neuro monitoring leads were applied. The patient was carefully positioned supine on a regular OR table. A lateral x-ray with a C-arm was done to identify the level and to define the incision. The anterior neck was then prepped and draped in the usual fashion. A final timeout was then performed. A transverse skin incision was then taken to the left of midline 2 fingerbreadths above the clavicle. Subcutaneous tissue was then divided with Bovie. Platysma was identified and cut transversely with scissors. The fascial interval between the sternocleidomastoid and the larynx was developed. Omohyoid was identified and mobilized medially and inferiorly. Carotid sheath was laterally while the esophagus with the larynx was retracted medially to reach the prevertebral fascia. All prevertebral layers of fascia were bluntly dissected and a [place] pin was placed into one of the bodies. A lateral C-arm image was used to confirm the correct level. Once this was done longus coli muscle was elevated on both sides at and above and below C5-6 disc. Shadow line retractors were then placed with great care to protect the esophagus. A long handle knife was then used to perform annulotomy at C5-6. Disc fragments were removed with the pituitary. [place] pins were placed in C5 and C6 for disc distraction. Curettes were utilized to remove cartilage from the endplates. Discectomy was performed laterally up to the uncovertebral joints. Adequate decompression was performed, PLL was thinned out and resected. Foramina were decompressed without taking down the uncovertebral processes. Once the disc space was prepared, trials of various sizes were utilized. Thorough irrigation was given. Mobi-C anterior cervical disc replacement implant of size 13 x 15 mm with 5 mm height was then placed under fluoroscopic guidance. Adequate positioning was noticed on AP and lateral views. Thorough irrigation was again given. Hemostasis was achieved with FloSeal and bipolar cautery. Closure was done with 3-0 Vicryl for the platysma and subcutaneous tissue layers and 4-0 Monocryl for the skin. Closure was done a round the drain. Steri-Strips were applied and dressing was done with 4 x 4 gauze and Tegaderm. A cervical collar was then applied. The patient was then woken up from anesthesia extubated and taken to PACU in stable condition. Intraoperative neuro monitoring was performed throughout this procedure. Motor evoked potentials were run periodically. All potentials remained at baseline throughout the procedure. I was present for the entire surgery and performed the surgery myself. Tray Drier Operator Sri Tatum PA-C. My physician transportation assistant was a vital part of this case. They were important in appropriate retraction during the case, and protection of soft tissues during the procedure. Their intimate knowledge of the case and my steps aided in safe and expedient completion of the procedure as well as appropriate position of the patient during the surgery. They were also vital in assisting with closure under my direct supervision. Surgical Findings: See operative note Air Traffic Coordinator environmental health manager: Yes Metal And Plastic Heater: Sri Tatum Tasks completed by first assistant manager: Closing, Hemostasis: Electrocautery and Retracting Complications Complications: No Procedures Musculoskeletal [id number]: Other Procedure See Report
--- NOTE | 2024-05-20 10:11 | PCM.POST.ANE ---
Anesthesia: Postop Eval I Current Vital Signs Temperature: 97.4 F Pulse Rate: 102 Blood Pressure: 134/89 Respiratory Rate: 18 Pulse Ox: 100 Oxygen Delivery Method: Simple Mask Oxygen Flow Rate (L/min): 6 Assessment Airway patent: Yes Spontaneous unlabored respirations: Yes Mental status: Awake and Calm nausea: No Vomiting: No Anesthesia Complication: No Fluid Hydration Crystalloid volume administer (ml): 1,500 Total IV fluid infused: 1,500 Progress Note Post-operative progress note: oral airway removed Anesthesia document: Postop Eval 1 completed: Yes
--- NOTE | 2024-05-20 10:51 | POSTOPAN2_ITS ---
Anesthesia Postop Eval I Sum Postop Eval Completion status Anesthesia document: Postop Eval 1 completed: Yes Anesthesia Postop Eval I Summary Anesthesia Postop Eval I Summary: Anesthesia Postop Eval I: Assessment Summary Airway patent Yes 05/20/24 10:12 DRONE PILOT.[email or web address] Spontaneous unlabored Yes 05/20/24 10:12 DRONE PILOT.FELIPE respirations Mental status Awake,Calm 05/20/24 10:12 DRONE PILOT.DYLLANOBOlamide nausea No 05/20/24 10:12 DRONE PILOT.DYLLANOBOlamide Vomiting No 05/20/24 10:12 DRONE PILOT.DYLLANOBOlamide Anesthesia Postop Eval I: Fluid Summary Crystalloid volume administer 1,500 05/20/24 10:12 DRONE PILOT.DYLLANOBY (ml) Colloids volume administered ( ml) Blood Product volume administered (ml) Total IV fluid infused 1,500 05/20/24 10:12 DRONE PILOT.DYLLANOBOlamide Anesthesia Postop Eval I: Summary Notes Anesthesia Complication No 05/20/24 10:12 DRONE PILOT.FELIPE Anesthesia Complication Comment: Post-operative progress note oral airway 05/20/24 10:12 DRONE PILOT.FELIPE removed Anesthesia: Postop Eval II Evaluation Mental status: Awake Pain Level: 2 nausea: No Vomiting: No
--- NOTE | 2024-05-20 10:51 | PCM.POSTANE2 ---
Anesthesia Postop Eval I Sum Postop Eval Completion status Anesthesia document: Postop Eval 1 completed: Yes Anesthesia Postop Eval I Summary Anesthesia Postop Eval I Summary: Anesthesia Postop Eval I: Assessment Summary Airway patent Yes 05/20/24 10:12 TITLE AGENT.DYLLANOBOlamide Spontaneous unlabored Yes 05/20/24 10:12 TITLE AGENT.FELIPE respirations Mental status Awake,Calm 05/20/24 10:12 TITLE AGENT.DYLLANOBOlamide nausea No 05/20/24 10:12 TITLE AGENT.DYLLANOBOlamide Vomiting No 05/20/24 10:12 TITLE AGENT.DYLLANOBOlamide Anesthesia Postop Eval I: Fluid Summary Crystalloid volume administer 1,500 05/20/24 10:12 TITLE AGENT.DYLLANOBY (ml) Colloids volume administered ( ml) Blood Product volume administered (ml) Total IV fluid infused 1,500 05/20/24 10:12 TITLE AGENT.DYLLANOBOlamide Anesthesia Postop Eval I: Summary Notes Anesthesia Complication No 05/20/24 10:12 TITLE AGENT.FELIPE Anesthesia Complication Comment: Post-operative progress note oral airway 05/20/24 10:12 TITLE AGENT.FELIPE removed Anesthesia: Postop Eval II Evaluation Mental status: Awake Pain Level: 2 nausea: No Vomiting: No
== END 2024-05-20 12:30 | disposition home or self-care (01) ==
LOC: SDC 05:24 → AC 05:25
PROVIDERS: Anesthesiology; PCP Nurse Practitioner Family; Referring Provider Orthopaedic Surgery Orthopaedic Surgery of the Spine; Visit Provider Orthopaedic Surgery Orthopaedic Surgery of the Spine
PROC: (CPT 22856; principal; 2024-05-20 07:00)
DX: M50.122 Cervical disc disorder at C5-C6 level with radiculopathy (principal); M50.022 Cervical disc disorder at C5-C6 level with myelopathy
CPT/HCPCS: 22856; 00600; 36415; 72040; 76000; 80048; 82962; 83735; 86703; 86706; 86708; 86803; 86850; 86900; 86901; 87081; A4648; J2405; J3475

== ENCOUNTER 2024-08-01 10:00 | Outpatient (RCR) | payer OTHER, SELFPAY ==
--- NOTE | 2024-06-25 16:01 | HP.PTEVAL ---
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 Date of Evaluation: 06/24/24 Physical Therapist: Mindy Betancourt, PT, Cert MDT Visit Plan Frequency: 2-3x /Week Duration: 4-6 Weeks Plan: CURRENT PHYSICIAN RESTRICTIONS: NO LIFTING MORE THAN A GALLON OF MILK OR 8 LBS. START WITH CERVICAL ISOMETRICS AND AROM OF CERVICAL SPINE AND SHL'S. POSTURE CORRECTION/STRENGTHENING, INSTRUCTION IN APPROPRIATE BODY MECHANICS AND ACTIVITY MODIFICATIONS. AICHA UE ROM, STRETCHING AND STRENGTHENING WITH PRE TO HELP RETURN TO PLOF. HEP INSTRUCTION. AICHA CERVICAL STM NEEDED. MH/CP NEEDED. 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 S/P CERVICAL DISC REPLACEMENT 05/20/24 Work/Leisure: CURRENTLY OFF WORK AND WILL HAVE RESTRICTIONS FOR AT LEAST 3 MONTHS. 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 LIFTING UP TO 20 LBS. VERY REPETITIVE. TRANSFERRED TO [employer] - LIGHT TO MODERATE WORK. Disability: NO Present symptoms: L UPPER ARM, ELBOW AND FOREARM PAIN (CHIEF COMPLAINT). NECK PAIN L>R. SHOULDER PAIN L>R. DENIES AICHA UE NUMBNESS AND TINGLING. NO LONGER HAVING ANY L HAND SYMPTOMS. NO LONGER HAVING HEADACHES SINCE SURGERY. Present since: END August 2023 Pain Scale: Worst - 3/10 Least - 1/10 Currently: 2/10 Getting Better, Getting Worse, or Staying the Same: GETTING BETTER. Commenced as a result of: Constantly starring down, packing and lifting at work. Symptoms at onset: L NECK PAIN and HEADACHES Worse: LIFTING, LOOKING DOWN, SLEEPING PROVOKES L ARE PAIN. Better: TYLONOL, USING HEAT ON L ARM, STRETCHING AND MASSAGING L ARM. Disturbed sleep: YES - L UE PAIN. Previous history/Previous treatment: CHIROPRACTIC A COUPLE YEARS AGO FOR SHOULDERS - RESOLVED SHOULDER PROBLEMS. OCCUPATIONAL THERAPY X 36 VISITS FOR L HAND. PT FOR NECK. This Episode: S/P CERVICAL DISC REPLACEMENT 05/20/24 FOLLOWED BY NECK COLLAR X 24 HRS THEN NEEDED FOR COMFORT X 2 WKS. CURRENTLY ONLY MEDICATION IS TYLONOL. STARTED NECK ROM TOLERATED. STARTED LIGHT HOUSEWORK. Dizziness: NO Tinnitus: NO Nausea: NO Shortness of Breath: NO Difficulty Swollowing: NO Gait: NORMAL Accidents: NO Unexplained weight loss: NO Imaging: YES - X-RAYS AND MRI PRIOR TO SURGERY. AND X-RAY SINCE SURGERY AT 2 WK FOLLOW UP. PATIENT REPORTS DR. MUNROE SAID EVERYTHING LOOKS GOOD. 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 CURRENT PHYSICIAN RESTRICTIONS: NO LIFTING MORE THAN A GALLON OF MILK OR 8 LBS. Objective Objective: Objective: Sitting/Standing Posture: FH. ROUNDED SHOULDERS L>R. Active Correction of posture: BETTER. ABLE TO PARTIALLY CORRECT AND DECREASES C/O NECK PAIN. DOES NOT MAINTAIN. Other Observations: INDEP GAIT AND TRANSFERS WITH NO GROSS DEVICATIONS NOTED. ABLE TO SLS X > 15 SEC EACH LE WITHOUT UE ASSIST. Sensory deficit: AICHA UE LIGHT TOUCH SENSATION GROSSLY INTACT AND SYMMETRICAL ROM deficit: L SHLD FLEX 135 DEG, R 150 DEG. PATIENT C/O SHLD AND NECK STRAIN WITH TESTING L>R. Motor deficit: AICHA SHLD'S GROSSLY 4/5, ELBOWS 5/5. PATIENT IS R HAND DOMINANT WITH A R NURSE ORTHOPEDIC STRNGTH OF 46 LBS AND L 41 LBS. Reflexes: 1+ AICHA UE'S Dural Signs: NEGATIVE AICHA UE'S. Cervical Mvmt Loss: Flex: NIL Pro: NIL Ext: MOD Ret: MOD RSB: MOD LSB: MOD R Rot: MOD L Rot: MOD PATIENT C/O TIGHTNESS BUT DENIES INCREASED PAIN WITH CERVICAL ROM TESTING ALL PLANES. Postural strength: FAIR. OTHER: ANTERIOR CERVICAL INCISION LOOKS GOOD WITHOUT ANY SIGNS OF INFECTION, OPEN AREAS OR DRAINAGE. Balance/Special Test Scores Oswestry Neck Score: 22 Goals Goal 1:: DECREASE C/O NECK AND UE SX'S BY AT LEAST 75% TO EASE ADL'S Goal Time Frame: 6-8 Weeks Goal 2:: IMPROVE PERSONAL CARE, LIFTING, READING, REACHING, PUSHING, PULLING, SLEEP, WORK AND RECREATIONAL FUNCTION WITH AT LEAST 5 POINT INCREASE IN NECK OSWESTRY SCORE Goal Time Frame: 6-8 Weeks Goal 3:: PATIENT WILL BE INDEP WITH A HEP FOR CONTINUED IMPROVEMENT ONCE FORMAL PHYSICAL THERAPY CONCLUDES. Rehabilitation Potential Physical Therapy Diagnosis: POSTURAL WEAKNESS AND HYPOMOBILITY WITH DECREASED NECK ROM Rehabilitation Potential: Good Anticipated Interventions Patient/Client Instruction: Educate patient on: Condition, Plan of Care and Risk Factors For the Purpose of:: To improve self management Therapeutic Exercise to Include: Strength training, Body mechanics, Postural training, Flexibilty training, Neuromotor development, Relaxation training, Passive ROM, Active ROM and Scapular Strength/Stabilization For the Purpose of:: To decrease pain, To decrease swelling/inflammation, To increase ROM, To improve nutrient delivery to tissue, To improve muscle performance and motor function, To improve ability to perform ADL's, To increase tolerance to activity/condition/position, To improve ability of physical actions for home/community/work/leisure, To decrease soft tissue restriction, To increase flexibility/ROM and To improve self management Manual Therapy Techniques to Include: Scar massage, Passive ROM and Soft tissue mobilization For the Purpose of:: To decrease pain, To increase ROM, To improve muscle performance and motor function, To increase tolerance to activity/condition/position, To improve ability of physical actions for home/community/work/leisure, To increase flexibility/ROM and To improve self management Cryotherapy (ice pack, ice massage): Yes Thermo therapy (hot pack): Yes For the Purpose of:: To decrease pain, To decrease swelling/inflammation and To improve nutrient delivery to tissue Text: Thank you for the opportunity to evaluate your patient. For Medicare and Medicare HMO plans, please review the plan of care and approve it. It will need to be FAXED BACK to us at [phone] for Medicare purposes. For Medicare only, by signing this I certify the plan of care. Please let me know if there are questions or concerns regarding this plan of care. Physician Signature: Date:
--- NOTE | 2024-08-01 10:33 | HP.PTDCSUM_ITS ---
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 for a total of 11 visit(s). Discharge Date: 08/01/24 Please see the following information for a summary of their discharge status. Subjective Subjective: I FEEL SO GOOD. I JUST HAVE A LITTLE BIT OF NECK PAIN SOME TIMES. READING AND LOOKING DOWN IS A LOT BETTER. PATIENT REPORTS SHE CAN CLEAN HER HOUSE WITHOUT TAKING BREAKS NOW. SHE CAN TURN HER HEAD DRIVING NO PROBLE NOW. I STILL DON'T HAVE ANY OF THOSE HEADACHES ANYMORE. PATIENT REPORTS SHE IS DOING REALLY GOOD AND IS PLANNING TO GO BACK TO WORK WITHOUT RESTRICTIONS 08/19/[address] MUNROE RELEASES HER 08/15/24 AT HER 3 MONTH F/U. SHE REPORTS JUST INTERMITTENT MILD NECK PAIN IN THE MORNINGS THAT RESOLVES WITH HER HEP. SHE STATES THE ONLY THING SHE HASN'T TRIED IS LIFTING MORE THAN 15 LBS BECAUSE SHE ISN'T SUPPOSED TO AND HER NEW JOB DOESN'T INVOLVE LIFTING MORE THAN 15 LBS ANYWAY. SHE STATES SHE IS REALLY FEELING Pain NECK: Pain Intensity (Out of 10): 0 SHOULDERS: Pain Intensity (Out of 10): 0 Overall Improvement % Improvement: 95 Objective Objective/Function: PATIENT WAS SEEN TODAY FOR RE-ASSESSMENT OF PROGRESS TOWARD THE SET PT GOALS AND THE NEED FOR FURTHER PHYSICAL THERAPY VS READINESS FOR DISCHARGE. THIS PATIENT HAS DONE REALLY WELL WITH PHYSICAL THERAPY AND IS APPROPRIATE FOR AND AGREEABLE TO DISCHARGE. ALL GOALS HAVE BEEN MET. UPON EXAM TODAY: ROM deficit: L SHLD FLEX 155 DEG, R 155 DEG. PATIENT C/O SHLD AND NECK STRAIN WITH TESTING L>R. Motor deficit: AICHA SHLD'S GROSSLY 5/5, ELBOWS 5/5. 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 Reflexes: 1+ AICHA UE'S Dural Signs: NEGATIVE AICHA UE'S. Cervical Mvmt Loss: Flex: NIL Pro: NIL Ext: MIN Ret: MIN RSB: MIN LSB: MIN R Rot: MIN L Rot: MIN PATIENT DENIES ANY PAIN WITH CERVICAL AND UE TESTING TODAY. Goals Goal 1:: DECREASE C/O NECK AND UE SX'S BY AT LEAST 75% TO EASE ADL'S Goal Progress: Goal Met Goal 2:: IMPROVE PERSONAL CARE, LIFTING, READING, REACHING, PUSHING, PULLING, SLEEP, WORK AND RECREATIONAL FUNCTION WITH AT LEAST 5 POINT INCREASE IN NECK OSWESTRY SCORE Goal Progress: Goal Met Goal 3:: PATIENT WILL BE INDEP WITH A HEP FOR CONTINUED IMPROVEMENT ONCE FORMAL PHYSICAL THERAPY CONCLUDES. Goal Progress: Goal Met Plan Plan: INCREASE LIFTING SLOWLY FROM CURRENT 8 LBS TO 16 LBS. CURRENT PHYSICIAN RESTRICTIONS: NO LIFTING MORE THAN 16 LBS. START WITH CERVICAL ISOMETRICS AND AROM OF CERVICAL SPINE AND SHL'S. POSTURE CORRECTION/STRENGTHENING, INSTRUCTION IN APPROPRIATE BODY MECHANICS AND ACTIVITY MODIFICATIONS. AICHA UE ROM, STRETCHING AND STRENGTHENING WITH PRE TO HELP RETURN TO PLOF. HEP INSTRUCTION. AICHA CERVICAL STM NEEDED. MH/CP NEEDED. D/C Information d/c sentence: If there are questions or concerns regarding this patient's physical therapy, please feel free to call me at [phone]. Thank you for the referral of this patient. Sincerely, Mindy Betancourt, PT, Cert MDT Balance/Gait/Functional tests Balance/Special Test Scores Oswestry Neck Score: 3 Improvement % Improvement: 95
== END 2024-08-01 19:00 | disposition home or self-care (01) ==
LOC: PT 10:00
PROVIDERS: PCP Nurse Practitioner Family; Visit Provider Student in an Organized Health Care Education/Training Program
DX: Z98.890 Other specified postprocedural states (principal)
CPT/HCPCS: 97110; 97162; 97530